=== PATIENT | female | born 1975 | race Hispanic/Latino ===

== ENCOUNTER 2024-12-10 12:53 | Emergency (ER) | payer OTHER ==
[~2024-12-10] VITALS: Ht 154.9 cm; Wt 58.6 kg
[2024-12-10 12:56] VITALS: PULSE 80; RESP 16; TEMP 98.3
[2024-12-10] MEDS ORDERED: BELLADONNA ALK/PHENOBARBITAL 5 ML UDC ONE (13:31)
[2024-12-10] MEDS ORDERED: LIDOCAINE VISC 2% SOLN 15 ML UDC ONE (13:31)
[2024-12-10] MEDS ORDERED: MAGNESIUM/ALUMINUM/SIMETHICONE 30 ML UDC ONE (13:31)
[2024-12-10] MEDS: FAMOTIDINE 20 MG/2 ML VIAL IV STA (13:40)
[2024-12-10] MEDS: MAGNESIUM/ALUMINUM/SIMETHICONE 30 ML UDC PO ONE (13:45)
[2024-12-10] MEDS: BELLADONNA ALK/PHENOBARBITAL 5 ML UDC PO ONE (13:45)
[2024-12-10] MEDS: LIDOCAINE VISC 2% SOLN 15 ML UDC PO ONE (13:51)
[2024-12-10] MEDS: DONNATAL/LIDOCAINE/MAALOX 30 ML SUSP PO ONE (13:52)
[2024-12-10] MEDS ORDERED: DICYCLOMINE HCL20 MG PO (14:03)
[2024-12-10] MEDS ORDERED: ONDANSETRON ODT4 MG PO (14:04)
[2024-12-10 14:16] VITALS: BP 130/72; PULSE 80; RESP 18; O2SAT 95
== END 2024-12-10 14:11 | disposition home or self-care (01) ==
LOC: FSED 13:04
DX: R10.33 Periumbilical pain (principal); K52.9 Noninfective gastroenteritis and colitis, unspecified; R11.2 Nausea with vomiting, unspecified
CPT/HCPCS: 80053; 81003; 81025; 85025; 96374; 99283